=== PATIENT | male | born 1995 | race Caucasian/White ===

== ENCOUNTER 2018-05-05 20:25 | Emergency (ER) | payer OTHER ==
[~2018-05-05 20:25] MED LIST: BUSPIRONE HCL10 M1 PO; CITALOPRAM HBR40 MG PO; PROPRANOLOL HCL10 M1 PO; QUETIAPINE FUM100 M1 PO; QUETIAPINE FUMA50 M1 PO
--- NOTE | 2018-05-05 22:30 | ED GENERAL ADULT ---
See Addendum History of Present Illness General Chief Complaint: Psychiatric Related Complaint Stated Complaint: "I WANT DETOX" Source: patient Exam Limitations: no limitations Vital Signs & Intake/Output Vital Signs & Intake/Output Vital Signs Date Time Temp Pulse Resp B/P B/P Pulse O2 O2 Flow FiO2 Mean Ox Delivery Rate 05/05 2036 97.0 72 16 113/70 97 Room Air Allergies Coded Allergies: No Known Allergies (11/13/15) Reconcile Medications Quetiapine Fumarate 100 MG TABLET 1 TAB PO QPM MENTAL HEALTH (Reported) Triage Note: PT TO ED SEEKING DETOX FROM ETOH AND HEROIN. STATES HAS BEEN DRINKING 2 PINTS OF LIQUOR DAILY FOR LEWIS PAST COUPLE MONTHS. LAST DRINK 5-6 HRS AGO. LAST HEROIN USE 12 HOURS AGO. DENIES HX OF WITHDRAWAL SEIZURES. DENIES SI/HI. VITALS WNL AT TRIAGE. Triage Nurses Notes Reviewed? yes HPI: 23-year-old male presents asking for detox from heroin. He reports he used about 12 hours ago. He reports he injected heroin 12 hours ago. He denies being suicidal homicidal. He specifically denies using alcohol. He reports he does not drink alcohol daily. He reports no alcohol use today. The patient is not here for alcohol detox. Patient denies any diarrhea, abdominal pain, chest pain, muscle pains at this time. Past History Travel History Traveled to [place] past 21 day No Medical History Any Pertinent Medical History? see below for history Neurological: NONE EENT: NONE Cardiovascular: HTN Respiratory: NONE Gastrointestinal: NONE Hepatic: HEP C Renal: NONE Musculoskeletal: NONE Psychiatric: anxiety, depression, IV DRUG USE Endocrine: NONE Blood Disorders: NONE Cancer(s): NONE Surgical History Surgical History: N Psychosocial History What is your primary language French Tobacco Use: Current Daily Use Daily Tobacco Use Amount/Type: => 5 Cigarettes daily ETOH Use: heavy use Illicit Drug Use: heroin Family History Hx Contributory? No Review of Systems Review of Systems Constitutional: Denies: chills, diaphoresis, fever. EENTM: Denies: blurred vision, double vision, visual changes. Respiratory: Denies: cough, hemoptysis, orthopnea. Cardiovascular: Denies: chest pain, edema. GI: Denies: abdominal pain, bloating, constipation. Genitourinary: Denies: discharge, dysuria, frequency. Musculoskeletal: Denies: back pain, gout. Skin: Denies: cysts, change in skin color. Neurological/Psychological: Denies: anxiety, ataxia, cognitive dysfunction. Physical Exam Physical Exam General Appearance: well developed/nourished, no apparent distress, alert Head: atraumatic, normal appearance, active bleeding Eyes: Bilateral: PERRL, EOMI. Ears, Nose, Throat: normal pharynx, normal ENT inspection Neck: normal inspection, supple Respiratory: normal breath sounds, chest non-tender Cardiovascular: regular rate/rhythm, edema Gastrointestinal: normal bowel sounds, soft, non-tender, no organomegaly Back: normal inspection Neurologic/Psych: no motor/sensory deficits, awake, alert, oriented x 3 Skin: intact, normal color, warm/dry Core Measures ACS in differential dx? No CVA/TIA Diagnosis: No Sepsis Present: No Sepsis Focused Exam Completed? No Progress Differential Diagnoses . Plan of Care: See below Initial ED EKG: none Comments: The patient is awake and completely sober. He has not intoxicated. He has normal cerebellar exam, walk on one foot, hop, move. The patient denies using alcohol. I discussed the triage note rhythm, states that he never talked to her alcohol, he is interested in opiate detox. We will give the patient outpatient detox facility since we do not have inpatient detox and I will give him clonidine to help with acute symptoms if he has them. At this time the patient is not having acute symptoms of detox. Abdomen is soft and benign. Clinically sober. Drove himself here. Patient counseled against drug abuse, risk of explained to the patient. The patient verbalizes understanding. I have encouraged the patient that he has taken a good step and I will also encourage the patient to call in the morning. I will give him a list of detox facilities. Patient strongly denies being suicidal homicidal. Departure Departure Time of Disposition: 2227 Disposition: HOME OR SELF CARE Condition: Stable Clinical Impression Primary Impression: Heroin abuse Referrals: Olayinka ALVAREZ,Abiodun Van (PCP/Family) Additional Instructions: If you have any thoughts of harming himself or anyone else, return to the emergency room. If you have any questions, concerns, return to the emergency room. Departure Forms: Customer Survey General Discharge Information Critical Care Note Critical Care Note Critical Care Time: non-applicable
[2018-05-05] MEDS ORDERED: ZOFRAN4 M2 PO (22:35)
[2018-05-05] MEDS ORDERED: CLONIDINE HCL0.1 MG PO (22:35)
[2018-05-05 22:50] VITALS: BP 111/57
== END 2018-05-05 23:00 ==
LOC: ERH 20:25
DX: F11.10 Opioid abuse, uncomplicated (principal); I10 Essential (primary) hypertension; B19.20 Unspecified viral hepatitis C without hepatic coma; F41.9 Anxiety disorder, unspecified; F32.9 Major depressive disorder, single episode, unspecified; F17.210 Nicotine dependence, cigarettes, uncomplicated; F10.10 Alcohol abuse, uncomplicated